=== PATIENT | female | born 1955 | race Caucasian/White ===

== ENCOUNTER 2024-11-15 13:04 | Outpatient (CLI) | payer MEDICARE, OTHER | END 2024-11-15 13:05 | disposition home or self-care (01) | LOC: SCSMRI 13:04 | PROVIDERS: ATTEND Orthopaedic Surgery | DX: M23.92 Unspecified internal derangement of left knee (principal); M25.862 Other specified joint disorders, left knee; M67.462 Ganglion, left knee ==